=== PATIENT | male | born 2000 | race Caucasian/White ===

== ENCOUNTER 2021-01-27 10:11 | Emergency (ER) | payer MEDICAID, OTHER ==
[~2021-01-27] VITALS: Ht 152.4 cm; Wt 28.6 kg
[2021-01-27 10:22] VITALS: BP 95/63
== END 2021-01-27 12:35 | disposition home or self-care (01) ==
LOC: ER 10:12
DX: R06.02 Shortness of breath (principal); Z20.822 Contact with and (suspected) exposure to COVID-19; R50.9 Fever, unspecified; Z87.01 Personal history of pneumonia (recurrent); Z79.899 Other long term (current) drug therapy
CPT/HCPCS: 71045; 87635; 99284; C9803

== ENCOUNTER 2021-05-10 16:28 | Inpatient (IN) | payer MEDICAID ==
[~2021-05-10] VITALS: Ht 127 cm; Wt 28.0 kg
[2021-05-10] MEDS ORDERED: normal saline 1000ML IV soln IV ONE (18:10)
--- NOTE | 2021-05-10 18:59 | NUR ---
VICE PRESIDENT MARKETING & DEVELOPMENT UNABLE TO DRAW BLOOD, MEDICAL CARE EVALUATION SPECIALIST AWARE PT NEEDS BED, EKG ON HOLD FOR NOW PER PROVIDER, NO ER BEDS AVAILABLE AT THIS TIME
--- NOTE | 2021-05-10 19:54 | NUR ---
attempted IV 3x,no success, pt moved to room 9
[2021-05-10 20:27] LABS: BASOPHILS % (AUTO) 0.3 % (0-1); EOSINOPHILS % (AUTO) 0.1 % (0-6); HEMATOCRIT 48.6 % (42.0-52.0); HEMOGLOBIN 16.4 g/dl (14.0-17.9); LYMPHOCYTES # (AUTO) 0.4 X10'3 (1.1-4.8); LYMPHOCYTES % (AUTO) 7.4 % (21-51); MEAN CORPUSCULAR HEMOGLOBIN 33.1 PG (27.0-31.0); MEAN CORPUSCULAR HGB CONC 33.8 g/dL (33.0-36.5); MEAN PLATELET VOLUME 9.3 FL (7.4-10.4); MONOCYTES # (AUTO) 0.5 X10'3 (0-0.9); MONOCYTES % (AUTO) 9.1 % (2-12); NEUTROPHILS # (AUTO) 4.8 X10'3 (1.8-7.7); NEUTROPHILS % (AUTO) 83.1 % (42-75); PLATELET COUNT 96 X10'3 (140-440); RED BLOOD COUNT 4.96 X10'6 (4.70-6.10); WHITE BLOOD COUNT 5.8 X10'3 (4.5-11.0)
[2021-05-10 20:41] LABS: ALANINE AMINOTRANSFERASE 62 U/L (12-78); ALBUMIN 4.2 G/DL (3.4-5.0); ALBUMIN/GLOBULIN RATIO 1.4 (1.1-1.5); ALKALINE PHOSPHATASE 65 IU/L (46-116); ANION GAP 10 (8-16); ASPARTATE AMINO TRANSFERASE 37 U/L (10-37); BILIRUBIN,TOTAL 0.5 MG/DL (0.1-1.0); BLOOD UREA NITROGEN 28 MG/DL (7-18); BUN/CREATININE RATIO 30.1 (5.4-32.0); CALCIUM 9.1 MG/DL (8.5-10.1); CHLORIDE 104 MMOL/L (99-107); CREATININE 0.93 MG/DL (0.60-1.10); GLUCOSE 102 MG/DL (70-104); MAGNESIUM 2.5 MG/DL (1.5-2.4); SODIUM 141 MMOL/L (135-145); TOTAL CARBON DIOXIDE 26.6 MMOL/L (24-32); TOTAL PROTEIN 7.2 G/DL (6.4-8.2); eGFR > 90 ML/MIN
[2021-05-10 20:44] LABS: POTASSIUM 4.6 MMOL/L (3.5-5.1)
[2021-05-10 21:07] LABS: LARGE PLATELETS FEW; PLATELET ESTIMATE DECREASED
[2021-05-10] MEDS ORDERED: piperacillin/tazo 3.375gm/50ml 50 ML IV ONE (22:15)
[2021-05-10] MEDS ORDERED: AMOX250S63 PO (22:32)
[2021-05-10] MEDS ORDERED: acetaminophen 325mg rectal suppository RC ONE (23:50)
[2021-05-10] MEDS ORDERED: acetaminophen 650mg rectal suppository RC ONE (23:55)
[2021-05-11] MEDS ORDERED: mag hydrox/Alum hydrox/simeth 30ml oral suspension PO PRN (00:30)
[2021-05-11] MEDS ORDERED: magnesium hydroxide 30ml (MOM) UD suspension PO PRN (00:30)
[2021-05-11] MEDS ORDERED: acetaminophen 325mg tablet PO PRN ×2 (00:30)
[2021-05-11] MEDS ORDERED: ondansetron/PF 4mg/2ml inj IV PRN (00:30)
[2021-05-11] MEDS ORDERED: morphine 2 MG/ML inj. syringe IV PRN ×2 (00:30)
[2021-05-11] MEDS ORDERED: acetaminophen 650mg rectal suppository RC PRN (00:30)
[2021-05-11] MEDS: normal saline 1000ml 1,000 ML IV SCH ×2 (00:57→17:51)
[2021-05-11] MEDS ORDERED: CLOB2.5O2 (02:38)
[2021-05-11] MEDS ORDERED: FERR220S7 PO (02:38)
[2021-05-11] MEDS ORDERED: LEVE100S (02:38)
[2021-05-11] MEDS ORDERED: LEVETIRACETAM (02:38)
[2021-05-11] MEDS ORDERED: OMEP40CA21 PO (02:40)
[2021-05-11] MEDS: piperacillin/tazo 3.375gm/50ml 50 ML IV SCH ×3 (06:27→21:27)
--- NOTE | 2021-05-11 07:46 | NUR ---
nancy rochester [phone] dad
[2021-05-11] MEDS: enoxaparin 40mg/0.4ml syringe SUBCUT SCH (07:59)
[2021-05-11] MEDS ORDERED: docusate sod 100mg capsule PO SCH (08:00)
[2021-05-11] MEDS ORDERED: magnesium Cl slow-release 64mg tablet PO PRN (09:10)
[2021-05-11] MEDS ORDERED: potassium Cl 40MEQ/1/2NS 520ml 520 ML IV PRN (09:10)
[2021-05-11] MEDS ORDERED: magnesium 4gm in 100ml NS 100 ML IV PRN (09:10)
[2021-05-11] MEDS ORDERED: potassium Cl 20 mEq SR tablet PO PRN ×2 (09:10)
[2021-05-11] MEDS ORDERED: LEVE100S PO (09:47)
[2021-05-11] MEDS ORDERED: CLOB2.5O2 PO (09:47)
[2021-05-11] MEDS ORDERED: FERR220S16 PO (09:47)
--- NOTE | 2021-05-11 13:26 | NUR ---
mom at bedside and updated with plan of care
[2021-05-11] MEDS ORDERED: OMEP20CA15 PO (15:09)
[2021-05-11] MEDS ORDERED: POLY17PO10 PO (15:29)
--- NOTE | 2021-05-11 17:25 | NUR ---
received report from MANJULA Etienne. Awaiting patient arrival.
[2021-05-11 17:45] VITALS: BP 83/46
--- NOTE | 2021-05-11 17:45 | NUR ---
Patient arrived to the floor. VSS. All belongings brought to room with him. Patients father connected him up to his tube feeding in the ER. When I received the patient, his tube feeding was infusing to his g-tube at 40ml/hr. patient was resting comfortably. IVF initiated at 60ml/hr per MD orders.
--- NOTE | 2021-05-11 18:24 | NUR ---
PAGER ID: [phone] MESSAGE: Joao ShethB: patients father set him up with home tube feedings at 40ml/hr. would you like to continue this or have the general repairer contacted in the AM? [phone]
--- NOTE | 2021-05-11 18:31 | NUR ---
Problems reprioritized. Patient report given, questions answered & plan of care reviewed with Grace RN's.
--- NOTE | 2021-05-11 18:48 | NUR ---
I have received report from MANJULA Bingham and had the opportunity to ask questions and assume patient care.
--- NOTE | 2021-05-11 18:52 | NUR ---
Patient in room [facility] 350. I have received report from MANJULA Bingham and had the opportunity to ask questions and assume patient care.
[2021-05-11] MEDS ORDERED: acetaminophen 325mg/10.15ml oral unit dose solution PEG PRN ×2 (19:52)
[2021-05-11] MEDS ORDERED: mag hydrox/Alum hydrox/simeth 30ml oral suspension PEG PRN (19:53)
[2021-05-11] MEDS ORDERED: magnesium hydroxide 30ml (MOM) UD suspension PEG PRN (19:54)
[2021-05-11] MEDS ORDERED: POTASSIUM BICARB 20meq eff tab 20 MEQ TABLET.EFF PEG PRN ×2 (19:55)
[2021-05-11] MEDS ORDERED: CLOBAZAM 2.5 MG/ML PO SCH (20:00)
[2021-05-11] MEDS ORDERED: ferrous sulfate 300mg/5ml UD oral liquid PO SCH (20:00)
[2021-05-11] MEDS: CLOBAZAM 2.5 MG/ML PEG SCH (20:00)
[2021-05-11] MEDS ORDERED: polyethylene glycol 3350 17gm powd pack PO SCH (20:00)
[2021-05-11] MEDS: K and/or MAG REPLACEMENT MC SCH (20:00)
[2021-05-11] MEDS ORDERED: levetiracetam 100mg/ml oral solution 5ml UD cup PO SCH (20:00)
[2021-05-11 20:09] VITALS: BP 105/52
--- NOTE | 2021-05-11 21:05 | NUR ---
notified MD regarding pt not voiding. bladder scan of 595. requested order to straight cath for scan over 400 every 6 hours. order received.
[2021-05-11] MEDS: levetiracetam 100mg/ml oral solution 5ml UD cup PEG SCH (21:24)
[2021-05-11] MEDS: ferrous sulfate 300mg/5ml UD oral liquid PEG SCH (21:25)
[2021-05-11] MEDS: polyethylene glycol 3350 17gm powd pack PEG SCH (21:25)
[2021-05-11] MEDS: docusate sodium 100mg/10ml UD cup PEG SCH (21:26)
[2021-05-12 00:11] VITALS: BP 115/54
[2021-05-12] MEDS: piperacillin/tazo 3.375gm/50ml 50 ML IV SCH ×2 (05:29→14:00)
--- NOTE | 2021-05-12 06:19 | NUR ---
Problems reprioritized. Patient report given, questions answered & plan of care reviewed with MANJULA Bingham.
--- NOTE | 2021-05-12 06:20 | NUR ---
I agree with Neha ladies' locker room attendant, charting, and report given to MANJULA Bingham
[2021-05-12 07:00] VITALS: BP 87/56
[2021-05-12] MEDS: enoxaparin 40mg/0.4ml syringe SUBCUT SCH (07:00)
[2021-05-12 07:42] LABS: BASOPHILS % (AUTO) 0.4 % (0-1); EOSINOPHILS % (AUTO) 1.3 % (0-6); HEMATOCRIT 33.3 % (42.0-52.0); HEMOGLOBIN 11.7 g/dl (14.0-17.9); LYMPHOCYTES # (AUTO) 0.8 X10'3 (1.1-4.8); LYMPHOCYTES % (AUTO) 38.6 % (21-51); MEAN CORPUSCULAR HEMOGLOBIN 33.5 PG (27.0-31.0); MEAN CORPUSCULAR HGB CONC 35.1 g/dL (33.0-36.5); MEAN CORPUSCULAR VOLUME 95.3 FL (78-98); MEAN PLATELET VOLUME 8.9 FL (7.4-10.4); MONOCYTES # (AUTO) 0.2 X10'3 (0-0.9); MONOCYTES % (AUTO) 10.9 % (2-12); NEUTROPHILS % (AUTO) 48.8 % (42-75); PLATELET COUNT 71 X10'3 (140-440); RED CELL DISTRIBUTION WIDTH 12.8 % (11.5-14.5); WHITE BLOOD COUNT 2.1 X10'3 (4.5-11.0)
[2021-05-12] MEDS: polyethylene glycol 3350 17gm powd pack PEG SCH (07:44)
[2021-05-12] MEDS: ferrous sulfate 300mg/5ml UD oral liquid PEG SCH (07:45)
[2021-05-12] MEDS: docusate sodium 100mg/10ml UD cup PEG SCH (07:51)
[2021-05-12] MEDS: levetiracetam 100mg/ml oral solution 5ml UD cup PEG SCH (07:52)
[2021-05-12] MEDS: K and/or MAG REPLACEMENT MC SCH (07:58)
[2021-05-12] MEDS ORDERED: lansoprazole 15mg solutab PEG SCH (08:00)
[2021-05-12] MEDS: CLOBAZAM 2.5 MG/ML PEG SCH (08:00)
[2021-05-12 08:03] LABS: ALBUMIN 2.7 G/DL (3.4-5.0); ANION GAP 6 (8-16); BLOOD UREA NITROGEN 16 MG/DL (7-18); BUN/CREATININE RATIO 23.9 (5.4-32.0); CHLORIDE 110 MMOL/L (99-107); CREATININE 0.67 MG/DL (0.60-1.10); GLUCOSE 84 MG/DL (70-104); MAGNESIUM 1.8 MG/DL (1.5-2.4); PHOSPHORUS 1.7 MG/DL (2.3-4.5); SODIUM 141 MMOL/L (135-145); TOTAL CARBON DIOXIDE 25.2 MMOL/L (24-32); eGFR > 90 ML/MIN
[2021-05-12 08:19] LABS: PLATELET ESTIMATE DECREASED; TOTAL CELLS COUNTED 100
[2021-05-12] MEDS: normal saline 1000ml 1,000 ML IV SCH (10:44)
--- NOTE | 2021-05-12 11:34 | NUR ---
PAGER ID: [phone] MESSAGE: [id number] Joao DUNCAN: Mother (Jacquelyn) is at bedside right now saying Bill will be unavailable but she can take your phone call at any time. [phone]. thank you!
[2021-05-12 11:50] VITALS: BP 109/73
[2021-05-12] MEDS ORDERED: LACT1CAP26 PEG (13:11)
[2021-05-12] MEDS ORDERED: AMOX-580 PEG (13:11)
--- NOTE | 2021-05-12 13:48 | NUR ---
spoke with Jacquelyn via t/c she is on her way to pick this patient up for discharge.
--- NOTE | 2021-05-12 14:22 | NUR ---
Patient stable and appropriate for discharge home with his parents. IV removed, all belongings taken from room. New prescriptions e-scripted to preferred pharmacy. All discharge instructions and education have been given and reviewed with parents, all questions answered.
--- NOTE | 2021-05-12 14:28 | NUR ---
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 No appropriate TF formula in stock at this time given pt with h/o PKU. Pt receiving home TF rx and in the process of getting discharged. Noted pt 60" at last visit in January of this year, current ht documented as 50" and wt is not scaled. No family members at bedside during the time of RD visit to confirm ht and wt. Addendum: 05/12/21 at [address] Amended: Links added.
== END 2021-05-12 14:26 | disposition home health service (06) | DRG 137 ==
LOC: ER 16:29 → ED HOLD 05-11 00:35 → UNDOADMIN 05-11 00:35 → SUR 3N 05-11 17:52 → ED HOLD 05-11 17:52
PROVIDERS: ADMIT Internal Medicine; ATTEND Family Medicine
DX: J69.0 Pneumonitis due to inhalation of food and vomit (principal); E87.2 Acidosis; G80.9 Cerebral palsy, unspecified; Z20.822 Contact with and (suspected) exposure to COVID-19; Q92.9 Trisomy and partial trisomy of autosomes, unspecified; Z93.1 Gastrostomy status; Z88.8 Allergy status to other drugs, medicaments and biological substances
CPT/HCPCS: 36415; 71045; 71250; 74176; 80048; 80053; 83605; 83735; 84100; 84145; 85007; 85008; 85025; 87040; 87077; 87502; 87503; 87635; 93005; 99285; C9803; G0378; J1650; J1953; J2543; J7030